=== PATIENT | female | born 1995 | race Caucasian/White ===

== ENCOUNTER 2016-10-18 14:57 | Outpatient (CLI) | payer OTHER ==
[~2016-10-18] VITALS: Ht 160 cm; Wt 89.1 kg
[~2016-10-18 14:57] MED LIST: ACET500C5 PO; CEPH500C PO; ONDA4TAB8 PO; PRENAT PO
[2016-10-18 15:38] VITALS: Ht 160 cm; Wt 89.1 kg
[2016-10-18 15:39] VITALS: BP 117/69; PULSE 80
--- NOTE | 2016-10-18 16:12 | RADRPT ---
PROCEDURE: US biophysical profile. CLINICAL INDICATION: Decreased motion. TECHNIQUE: Multiple sonographic images of the uterus were obtained. The images were revi ewed on a PACS workstation. COMPARISON: No prior studies are available for comparison. FINDINGS: There is a single live intrauterine gestation. heart rate is 157 beats per minute. The position is cephalic. The placenta is anterior grade III with no abruption or previa. The ZAID is 17.0 cm. (Normal = 5-20 cm.) Breathing Movement: 2 Gross Body Movement: 2 Tone: 2 Qualitative Amniotic Fluid Volume: 2 TOTAL: 8 IMPRESSION: 1. The biophysical score is 8/8. RPTAT: QQ .Misael Guzmán MD, MD Date Time Electronically viewed and signed by .Misael Guzmán MD, on 10/18/2016 16:12 .R/
--- NOTE | 2016-10-18 17:07 | QN ---
Documentation Comment iup 38 weeks vss exam wnl us wnl nst reactive a/p iup 38 weeks DFM resolved dc home CALVIN OSORIO MD Oct 18, 2016 17:07
== END 2016-10-18 17:02 | disposition home or self-care (01) ==
LOC: OBT 14:57 → L-D 14:59 → OBT 17:02
PROVIDERS: ATTEND Obstetrics & Gynecology
DX: O36.8130 Decreased fetal movements, third trimester, not applicable or unspecified (principal); Z3A.01 Less than 8 weeks gestation of pregnancy
CPT/HCPCS: 76818; Z7500; G0463

== ENCOUNTER 2016-10-21 13:06 | Inpatient (IN) | payer OTHER ==
[~2016-10-21] VITALS: Ht 160 cm; Wt 89.7 kg
[~2016-10-21 13:06] MED LIST changes: -ACET500C5 PO; -CEPH500C PO; -ONDA4TAB8 PO
[2016-10-21 13:36] VITALS: Ht 160 cm; Wt 89.7 kg
[2016-10-21 13:37] VITALS: BP 115/69; PULSE 89; RESP 18
--- NOTE | 2016-10-21 14:14 | RADRPT ---
PROCEDURE: Biophysical profile CLINICAL INDICATION: distress. Decreased movements. TECHNIQUE: Color and cody-scale ultrasound images of an intrauterine gestation were obtained. COMPARISON: October 18, 2016 FINDINGS: A single live intrauterine gestation is identified in cephalic position with an estimated hear t rate of 134 beats per minute. The placenta is located anteriorly and has a grade 3. The cervix i s obscured by head shadows. No evidence of abruption identified. ZAID is 15.1 cm. movement 2/2. tone 2/2. breathing movement 2/2. Qualitative AFV 2/2 Total biophysical profile 11/23 IMPRESSION: 11/23 biophysical profile. RPTAT: AA .Kishan Nguyen MD, Date Time Electronically viewed and signed by .Kishan Nguyen MD, MD on 10/21/2016 14:14 .P/
--- NOTE | 2016-10-21 14:36 | TRIAGE ---
OB Triage Datetime Report Generated by CPN: 10/21/2016 14:35 Datetime: 10/21/2016 13:33 Assessment Type: Triage Maternal Assessment Level of Consciousness: Fully Conscious DTR's/Clonus: DTRs 2+; No Clonus Headache: Denies Blurred Vision: No Respiratory Effort: Unlabored; Regular Rhythm; Equal Expansion Breath Sounds, Left: Clear and Equal Breath Sounds, Right: Clear and Equal Nausea/Vomiting: Denies RUQ Epigastric Pain: Denies Lower Extremities Edema: Bilateral Lower Extremities Degree: 1+ Upper Extremities Edema: None Degree: None Facial Edema: None Fall Risk Assessment History of Falling: (0) No Secondary Diagnosis: (0) No Ambulatory Aid: (0) Bedrest/Nurse Assist IV Therapy: (0) No Gait: (0) Normal/Bedrest/Immobile Mental Status: (0) Oriented to Own Ability Fall Score: 0 Fall Risk Score Definition: No Risk: No action required Datetime: 10/21/2016 13:32 Time of Arrival: 10/21/2016 13:05 EGA: 40.1 Arrived By: Ambulatory Arrived From: Home Chief Complaint: PT HERE FOR F/U NST/BPP FOR DFM Movement: Present Contractions: Denies/Absent Rupture of Membranes: Denies Vaginal Bleeding: None Vaginal Discharge: Denies Recent Sexual Intercouse: Denies Abdominal Trauma: Not Applicable Patient Complaints: None Time Provider Notified: 10/21/2016 14:29 Provider Notified: ABUSLEME FOR KHURRAM Initial Plan: NST/BPP Datetime: 10/21/2016 13:30 Monitor Mode: External Monitor Mode: External US Datetime: 10/18/2016 16:37 Stage of : OB Triage Datetime: 10/18/2016 15:36 Stage of : OB Triage Datetime: 10/18/2016 15:35 Stage of : OB Triage Assessment Type: Triage EGA: 39.5 Maternal Assessment Level of Consciousness: Fully Conscious DTR's/Clonus: DTRs 2+; No Clonus Headache: Denies Blurred Vision: No Respiratory Effort: Unlabored; Regular Rhythm; Equal Expansion Breath Sounds, Left: Clear and Equal Breath Sounds, Right: Clear and Equal Nausea/Vomiting: Denies RUQ Epigastric Pain: Denies Facial Edema: None Temperature Route: Axillary Fall Risk Assessment History of Falling: (0) No Secondary Diagnosis: (0) No Ambulatory Aid: (0) Bedrest/Nurse Assist IV Therapy: (0) No Gait: (0) Normal/Bedrest/Immobile Mental Status: (0) Oriented to Own Ability Fall Score: 0 Fall Risk Score Definition: No Risk: No action required Labor Evaluation Frequency: 0 Monitor Mode: External Pattern: Normal: <= 5 Contractions in 10 Minutes Heart Rate FHR Baseline Rate: 145 Monitor Mode: External US Variability: Moderate 6-25 bpm Accelerations: 10X10 Decelerations: None Category: Category I Pain Assessment Pain Scale: 0 Pain Presence: None/Denies Pain Type: N/A Pain Goal: 3 Pain Relief Measures: Comfort Measures Datetime: 10/18/2016 15:34 Time of Arrival: 10/18/2016 14:53 Arrived By: Ambulatory Chief Complaint: C/O DFM, DENIES BLEEDING, LEAKING OR UC'S Movement: Decreased Contractions: Denies/Absent Rupture of Membranes: Denies Vaginal Bleeding: None Vaginal Discharge: Denies Recent Sexual Intercouse: Denies Abdominal Trauma: Not Applicable Patient Complaints: None Time Provider Notified: 10/18/2016 15:36 Provider Notified: REYNA Initial Plan: MONITOR, BPP
[2016-10-21] MEDS ORDERED: MISOPROSTOL 200 MCG TAB PR PRN (15:30)
[2016-10-21] MEDS ORDERED: LACTATED RINGER'S 1,000 ML IV PRN (15:30)
[2016-10-21] MEDS ORDERED: LIDOCAINE 1% (MPF) 30 ML INJ INJ PRN (15:30)
[2016-10-21] MEDS ORDERED: OXYTOCIN 30 UNITS/LR 500 ML IV PRN (15:30)
[2016-10-21] MEDS ORDERED: OXYTOCIN 30 UNITS/LR 500 ML IV SCH ×3 (15:30)
[2016-10-21] MEDS ORDERED: CARBOPROST 250 MCG INJ IM PRN (15:30)
[2016-10-21] MEDS ORDERED: IBUPROFEN 600 MG TAB PO PRN (15:30)
[2016-10-21] MEDS ORDERED: METHYLERGONOVINE 0.2 MG INJ IM PRN (15:30)
[2016-10-21] MEDS ORDERED: BUTORPHANOL 2 MG INJ IV PRN (15:30)
--- NOTE | 2016-10-21 15:34 | HP ---
Date/Time of Note Date/Time of Note DATE: 10/21/16 TIME: 15:23 OB - History Hx of Present Free Text/Dictation October 21, 2006 OB triage history and physical for admission This patient is a 22 years old primigravida with estimated date of confinement of October 20, 2069 which makes her 40 weeks and 1 day. During the monitoring visit 4 days ago she was recommended to return in 3 days to have NST and biophysical profile today On examination she is a well-developed well-nourished lady postterm Her ear nose throat appear to be normal, neck is normal ,no neck vein distention, no thyromegaly ,no lymph node enlargement anywhere in the body Her chest is clear to auscultation her precaution no rales . Heart normal sinus rhythm no murmur breasts are soft free of masses Nipples and intact., Abdomen is soft ,very few contractions, fetus appears to be in vertex presentation heart tone is normal at this time with category 1 heart rate tracing Her general vital signs are normal with blood pressure 115/69, pulse rate 89 respiration, 18, temperature 98.7 and O2 saturation of 97 at room temperature. On pelvic examination the cervix was 1-2 cm ,70% effaced ,-2 station and intact membranes Chief Complaint: No movement. 40 weeks and 1 day . Ultrasounds: No ultrasounds (On ultrasound study the report is single live intrauterine gestation in cephalic presentation with heartbeat of 134/min the placenta was anterior grade 3 no evidence of apraxia her ZAID was 15.1 cm the biophysical was reported 8/8) Other Concerns: Her lab work were basically normal. Plan;she will be admitted in the hospital if no progress she will be induced for vaginal delivery Dr. Osborn which is covering Dr. Frausto was informed and agreed with the admission and induction of the patient End of dictation thank Past Family/Social History * Past Medical, Surgical, Family and Obstetric Histories reviewed from chart. OB Admission Exam Vital Signs Vital Signs Vital Signs Date Time Temp Pulse Resp B/P Pulse Ox O2 Delivery O2 Flow Rate FiO2 10/21/16 13:37 98.7 89 18 115/69 97 Room Air TOMASZ JUNE MD Oct 21, 2016 15:34
[2016-10-21] MEDS: LACTATED RINGER'S 1,000 ML IV SCH ×2 (15:58→21:04)
[2016-10-21 16:14] LABS: ADD SCAN DIFF NO
[2016-10-21 16:16] LABS: BASOPHILS % 0.1 % (0.0-2.0); EOSINOPHILS # 0.1 10^3/ul (0.0-0.5); EOSINOPHILS % 0.7 % (0.0-7.0); HEMATOCRIT 32.4 % (37.0-47.0); HEMOGLOBIN 10.7 g/dl (12.0-16.0); LYMPHOCYTES # 1.8 10^3/ul (0.8-2.9); LYMPHOCYTES % 19.8 % (18.0-55.0); MEAN CORPUSCULAR HEMOGLOBIN 28.5 pg (29.0-33.0); MEAN CORPUSCULAR VOLUME 86.4 fl (72.0-104.0); MEAN PLATELET VOLUME 11.7 fl (7.4-10.4); MONOCYTE # 0.8 10^3/ul (0.3-0.9); NEUTROPHIL # 6.5 10^3/ul (1.6-7.5); NEUTROPHILS % 70.1 % (30.0-74.0); PLATELET COUNT 177 10^3/UL (140-415); RED BLOOD COUNT 3.75 10^6/ul (4.20-5.40); WHITE BLOOD COUNT 9.2 10^3/ul (4.8-10.8)
[2016-10-21 16:34] LABS: INR 0.88; PROTIME 11.9 Sec (12.2-14.2); PT RATIO 0.9
[2016-10-21 16:35] LABS: PARTIAL THROMBOPLASTIN TIME 28.4 Sec (25.0-35.0)
[2016-10-22] MEDS: LACTATED RINGER'S 1,000 ML IV SCH (05:05)
[2016-10-22] MEDS ORDERED: FENTAnyl 2MCG/ML-ROPIV 0.2% 100 ML BAG EPI SCH (08:30)
[2016-10-22] MEDS ORDERED: DIPHENHYDRAMINE 50 MG INJ IV PRN (08:30)
[2016-10-22] MEDS ORDERED: ONDANSETRON 4 MG INJ IV PRN ×2 (08:30→15:00)
[2016-10-22] MEDS ORDERED: NALOXONE (0.4 MG/ML) INJ IV PRN (08:30)
--- NOTE | 2016-10-22 12:32 | LDN ---
Date/Time of Note Date/Time of Note DATE: 10/22/16 TIME: 12:31 Delivery Summary Placenta Delivered: Spontaneously Meconium: none Episiotomy: No Anesthesia type: Epidural Estimated blood loss: 200 Sponge & Needle done & correct: Yes All needle counts correct: Yes Any foreign bodies felt in the: No Problems: Delivery Information Apgars 1 Minute: 9 5 Minute: 9 Suctioning Nose & mouth suctioned at dominick: Yes Delee suction performed: Yes Umbilical Cord Umbilical cord with: 3 Vessels Cord presentations: no nuchal cord Cord Blood was obtained: Yes Mother & Baby Disposition Disposition Mom & Baby to Maternity; Good: Yes Baby to NICU: No FERNANDO ALEMAN M.D. Oct 22, 2016 12:31
[2016-10-22 14:10] VITALS: BP 122/75; PULSE 75; RESP 18
[2016-10-22] MEDS ORDERED: MISOPROSTOL 200 MCG TAB PR PRN (15:00)
[2016-10-22] MEDS ORDERED: LANOLIN 7 GM TUBE TOP PRN (15:00)
[2016-10-22] MEDS ORDERED: OXYCODONE/ASPIRIN (4.88/325) TAB PO PRN (15:00)
[2016-10-22] MEDS ORDERED: ZOLPIDEM 5 MG TAB PO PRN (15:00)
[2016-10-22] MEDS ORDERED: WITCH HAZEL/GLYCERIN PAD PR PRN (15:00)
[2016-10-22] MEDS ORDERED: BENZOCAINE 20% 56 ML SPRAY TOP PRN (15:00)
[2016-10-22] MEDS ORDERED: SENNA/DOCUSATE NA (8.6MG/50MG) TAB PO PRN (15:00)
[2016-10-22] MEDS ORDERED: OXYTOCIN 30 UNITS/LR 500 ML IV PRN (15:00)
[2016-10-22] MEDS ORDERED: METHYLERGONOVINE 0.2 MG INJ IM PRN (15:00)
[2016-10-22] MEDS ORDERED: CARBOPROST 250 MCG INJ IM PRN (15:00)
[2016-10-22 16:00] VITALS: BP 112/71; PULSE 98; RESP 18
[2016-10-22] MEDS: LACTATED RINGER'S 1,000 ML IV* SCH ×2 (17:48→22:56)
[2016-10-22] MEDS: IBUPROFEN 600 MG TAB PO SCH ×2 (17:48→23:58)
[2016-10-22 19:40] VITALS: BP 111/59; PULSE 86; RESP 19
[2016-10-22] MEDS: SENNA/DOCUSATE NA (8.6MG/50MG) TAB PO SCH (21:03)
[2016-10-23 04:00] VITALS: BP 102/58; PULSE 72; RESP 20
[2016-10-23] MEDS: IBUPROFEN 600 MG TAB PO SCH ×3 (05:43→18:03)
[2016-10-23 07:41] LABS: ADD SCAN DIFF NO
[2016-10-23 07:47] LABS: BASOPHILS % 0.3 % (0.0-2.0); EOSINOPHILS # 0.1 10^3/ul (0.0-0.5); EOSINOPHILS % 0.7 % (0.0-7.0); HEMATOCRIT 31.8 % (37.0-47.0); HEMOGLOBIN 10.3 g/dl (12.0-16.0); LYMPHOCYTES # 2.4 10^3/ul (0.8-2.9); MEAN CORPUSCULAR HEMOGLOBIN 28.8 pg (29.0-33.0); MEAN CORPUSCULAR HGB CONC 32.4 g/dl (32.0-37.0); MEAN CORPUSCULAR VOLUME 88.8 fl (72.0-104.0); MEAN PLATELET VOLUME 12.1 fl (7.4-10.4); MONOCYTE # 0.8 10^3/ul (0.3-0.9); MONOCYTES % 7.9 % (0.0-13.0); NEUTROPHIL # 7.1 10^3/ul (1.6-7.5); NEUTROPHILS % 67.5 % (30.0-74.0); PLATELET COUNT 165 10^3/UL (140-415); RED BLOOD COUNT 3.58 10^6/ul (4.20-5.40); RED CELL DISTRIBUTION WIDTH 15.4 % (11.5-14.5); WHITE BLOOD COUNT 10.5 10^3/ul (4.8-10.8)
[2016-10-23 08:22] VITALS: BP 126/84; PULSE 68; RESP 18
[2016-10-23] MEDS: SENNA/DOCUSATE NA (8.6MG/50MG) TAB PO SCH ×2 (08:24→21:30)
--- NOTE | 2016-10-23 10:26 | QN ---
Documentation Comment PPD#1 is stable afebrile tolerates diet No VB +Flatus Adequate urine VS stable Gen NAD Abd soft NT ND Dressing to be removed Genitalia No blood at perinium --->ambulation --->Discharge plan tomorrow FERNANDO ALEMAN M.D. Oct 23, 2016 10:25
[2016-10-23 16:00] VITALS: BP 113/57; PULSE 70; RESP 18
[2016-10-23 19:30] VITALS: BP 128/90; PULSE 74; RESP 20
[2016-10-23] MEDS: LACTATED RINGER'S 1,000 ML IV* SCH (22:56)
[2016-10-24] MEDS: IBUPROFEN 600 MG TAB PO SCH ×2 (00:16→05:30)
[2016-10-24 04:10] VITALS: BP 133/73; PULSE 61; RESP 20
[2016-10-24 08:32] VITALS: BP 135/88; PULSE 72; RESP 20
[2016-10-24] MEDS ORDERED: DIPHTH/TET/ACEL PERTUSS (ADULT) 0.5 ML VIAL IM* ONE (09:00)
[2016-10-24] MEDS: SENNA/DOCUSATE NA (8.6MG/50MG) TAB PO SCH (09:40)
--- NOTE | 2016-10-24 11:33 | PD.PPDC ---
[employer] REPA[employer] Discharge Instruction Condition Patient Condition: Good Diet Diet: Resume Regular Diet Activity/Restrictions Activity: Normal Activity May Shower Restrictions: No Sexual Activity Nothing in the Vagina No [place] No Tampons, douche Follow-up Follow-up with Physician: 6, Week/Weeks Return to clinic for [employer] Instructions: Fever greater than 101 Chills Worsening abdominal pain Excessive Vaginal Bleeding OB Instructions: Breast Tenderness Depression ADDIS KELLER MD Oct 24, 2016 11:32
--- NOTE | 2016-10-24 11:35 | DS ---
Date/Time of Note Date/Time of Note DATE: 10/24/16 TIME: 11:33 Obstetrical Discharge Record Final Diagnosis Final Diagnosis: Term delivered Vaginal Delivery Obstetrical Delivery: Spontaneous, Laceration, Repaired Complications Augmentation: No Induction: Yes Condition on Discharge Physical Assessment Last Vitals: T=98 RIOS 135/88 Voiding: Yes Bowel Movement: Yes Breast: Filling Fundus: Firm Calf Tenderness: No Patient Condition: Good ADDIS KELLER MD Oct 24, 2016 11:35
== END 2016-10-24 13:10 | disposition home or self-care (01) | DRG 775 ==
LOC: OBT 13:06 → L-D 13:07 → OBT 15:00 → L-D 15:01 → PP1 10-22 14:10
PROVIDERS: ADMIT Obstetrics & Gynecology; ATTEND Obstetrics & Gynecology
PROC: 10E0XZZ Delivery of Products of Conception, External Approach (ICD-10-PCS; principal; 2016-10-22)
DX: O48.0 Post-term pregnancy (principal); Z37.0 Single live birth; Z3A.40 40 weeks gestation of pregnancy
CPT/HCPCS: 62319; 76818; 85025; 85610; 85730; 86592; 86900; 86901; 90715; A4310; G0463; J0595; J1200; J2210; J2590; J3010; J7120